=== PATIENT | female | born 1985 ===

== ENCOUNTER 2023-11-20 11:29 | Outpatient (CLI) | payer MEDICAID | END 2023-11-20 23:59 | disposition home or self-care (01) | LOC: RAD 11:29 | PROVIDERS: ATTEND Student in an Organized Health Care Education/Training Program | DX: K80.20 Calculus of gallbladder without cholecystitis without obstruction (principal); R10.84 Generalized abdominal pain; K76.9 Liver disease, unspecified | CPT/HCPCS: 76700 ==